=== PATIENT | male | born 1955 ===

== ENCOUNTER 2021-03-02 05:18 | Day surgery (SDC) | payer OTHER ==
[~2021-03-02] VITALS: Ht 180 cm; Wt 64.0 kg
[~2021-03-02 05:18] MED LIST: DICLOFENAC SODI75 MG PO; PERCOCET 5-3251 EACH PO; PRILOSEC20 MG PO
[2021-03-02] MEDS ORDERED: COZAAR100 MG PO (05:43)
[2021-03-02] MEDS ORDERED: PEPCID AC20 MG PO (05:43)
[2021-03-02] MEDS ORDERED: PERCOCET 5-3251 EACH PO ×3 (07:03→09:25)
--- NOTE | 2021-03-02 09:35 | NUR ---
PER NINA GRAY,ORTHO LIASION, PT WILL D/C HOME WITH NO NEEDS.
[2021-03-02] MEDS ORDERED: ASPIRIN81 MG PO (13:24)
[2021-03-02] MEDS ORDERED: FEOSOL325 MG PO (13:24)
[2021-03-02] MEDS ORDERED: IBUPROFEN800 MG PO (14:40)
== END 2021-03-02 14:58 | disposition home or self-care (01) ==
LOC: FAS 05:18 → FMS 07:00 → EDSTATUS 13:00 → FMS 13:00 → FAS 13:00
DX: M19.012 Primary osteoarthritis, left shoulder (principal)
CPT/HCPCS: 73020; 86850; 86900; 86901; 94010; 97162; 97166; 97530-GP; 97535; C1713; C1776; J0171; J0735; J1885; J2250; J2270; J2405; J2704; J2710; J2795; J3010; J3370; J7050; J7120